=== PATIENT | female | born 1985 | race African-American/Black ===

== ENCOUNTER 2022-05-30 17:32 | Emergency (ER) | payer OTHER ==
[~2022-05-30] VITALS: Ht 152.4 cm; Wt 43.5 kg
[2022-05-30 17:43] VITALS: BP 100/60
[2022-05-30] MEDS ORDERED: VISCOUS LIDOCAINE 2% 15 ML UDC MM STA (18:35)
[2022-05-30] MEDS ORDERED: ONDANSETRON 4MG/5ML UDC PO ONE (18:45)
[2022-05-30] MEDS ORDERED: MAGNESIUM/ALUMINUM HYDROXIDE/SIMETHICONE 30ML UDC PO ONE (18:45)
[2022-05-30] MEDS ORDERED: FAMOTIDINE 20MG TABLET PO ONE (18:45)
[2022-05-30] MEDS ORDERED: ACETAMINOPHEN 325MG TABLET PO ONE (18:45)
== END 2022-05-30 19:15 | disposition home or self-care (01) ==
LOC: ER 17:32
DX: T49.0X1A Poisoning by local antifungal, anti-infective and anti-inflammatory drugs, accidental (unintentional), initial encounter (principal); I51.9 Heart disease, unspecified; Q90.9 Down syndrome, unspecified; Z95.2 Presence of prosthetic heart valve; Z79.01 Long term (current) use of anticoagulants; Y92.018 Other place in single-family (private) house as the place of occurrence of the external cause
CPT/HCPCS: 99284